=== PATIENT | male | born 1985 | race American Indian/Alaskan Native ===

== ENCOUNTER 2021-06-04 07:59 | Emergency (ER) | payer SELFPAY ==
[2021-06-04 08:52] VITALS: BP 107/83
--- NOTE | 2021-06-04 09:15 | Emergency Department Report ---
Chief Complaint: Urogenital-Male Stated Complaint: PENIS DISCHARGE Time Seen by Provider: 06/04/21 09:10 - HPI History of Present Illness: This is a 35-year-old -[place] male who presents to the emergency room with dysuria for 3 days. Patient states he think he has STI because it initially started with discharge which has now resolved. He currently denies penile discharge, urinary frequency, urgency, fever, chills, pelvic/abdominal pain, testicular swelling, or testicular pain - ROS Review of Systems: : Dysuria All other systems reviewed and no findings - Exam Vital Signs: Vital Signs 06/04/21 08:50 Pulse Rate 76 Respiratory 16 Rate Blood Pressure 107/83 [Left] O2 Sat by Pulse 99 Oximetry Physical Exam: - General Limitations: No Limitations General appearance: alert, in no apparent distress - Respiratory Respiratory exam: Present: normal lung sounds bilaterally. Absent: respiratory distress - Cardiovascular Cardiovascular Exam: Present: regular rate, normal rhythm. Absent: systolic murmur, diastolic murmur, rubs, gallop - GI/Abdominal GI/Abdominal exam: Present: soft, normal bowel sounds - Extremities Exam Extremities exam: Present: normal inspection - Back Exam Back exam: Present: normal inspection - Neurological Exam Neurological exam: Present: alert, oriented X3 - Psychiatric Psychiatric exam: Present: normal affect, normal mood - Skin Skin exam: Present: warm, dry, intact, normal color. Absent: rash MSE screening note: Focused history and physical exam performed. Due to findings the following was ordered: ED Medical Decision Making - Medical Decision Making This is a 35-year-old -[place] male who presents no significant medical history and presents with dysuria for 3 days. Patient was examined by me. Exam and history not consistent with syphilis, deep space infection, prostatitis, or acute abdomen. Vitals are stable and in no acute distress. No labs ordered. Referral to STD clinic for treatment. Discussed prevention options. F/U with PCP or Health Department. Discharged home in stable condition. ED Disposition for MSE Clinical Impression: Exposure to STD Disposition: 01 HOME / SELF CARE / HOMELESS Is pt being admited?: No Condition: Stable Instructions: Safe Sex Referrals: [facility] [Provider Group] - 3-5 Days [facility] [Outside] - 3-5 Days Time of Disposition: 09:15
== END 2021-06-04 09:37 | disposition home or self-care (01) ==
LOC: ED 07:59
DX: Z20.2 Contact with and (suspected) exposure to infections with a predominantly sexual mode of transmission (principal); R30.0 Dysuria
CPT/HCPCS: 99281